=== PATIENT | male | born 1960 | race Caucasian/White ===

== ENCOUNTER → 2018-05-12 | Outpatient (CLI) | payer OTHER | LOC: RAD 14:42 | DX: R10.9 Unspecified abdominal pain (principal) ==

== ENCOUNTER 2020-05-18 13:45 | Outpatient (RCR) | payer OTHER | END 2020-06-23 17:00 | disposition home or self-care (01) | LOC: PT 13:45 | DX: M47.27 Other spondylosis with radiculopathy, lumbosacral region (principal) ==

== ENCOUNTER → 2021-09-04 | Day surgery (SDC) | payer OTHER | LOC: MSO 07:57 | DX: Z12.11 Encounter for screening for malignant neoplasm of colon (principal); Z86.010 Personal history of colon polyps; G47.33 Obstructive sleep apnea (adult) (pediatric); Z79.899 Other long term (current) drug therapy | CPT/HCPCS: 00812; J2704; J3010; J7120 ==

== ENCOUNTER → 2023-09-06 | Outpatient (CLI) | payer OTHER ==
[~2023-09-06] MED LIST: Gadoterate 20 ML VIAL IV ONE
== END ==
LOC: RAD 11:10
DX: J34.89 Other specified disorders of nose and nasal sinuses (principal); R51.9 Headache, unspecified
CPT/HCPCS: A9575